=== PATIENT | female | born 1975 | race Caucasian/White ===

== ENCOUNTER 2019-06-16 14:03 | Emergency (ER) | payer OTHER ==
[2019-06-16 14:10] VITALS: BP 104/67; BMI 28.7
[2019-06-16] MEDS ORDERED: ACETAMINOPHEN 500 MG TABLET (FP) PO ONE (15:42)
[2019-06-16] MEDS ORDERED: KETOROLAC TROMETHAMINE 30 MG/1 ML VIAL IM ONE (15:42)
[2019-06-16] MEDS ORDERED: ACETAMINOPHEN 325 MG TABLET (FP) ONE (15:48)
[2019-06-16] MEDS ORDERED: KETOROLAC TROMETHAMINE 30 MG/1 ML VIAL ONE (15:49)
--- NOTE | 2019-06-16 17:32 | PDOC ---
History of Present Illness - General Chief Complaint: Cold Symptoms Stated Complaint: COLD SYMPTOMS Time Seen by Provider: 06/16/19 14:08 History Source: Patient Exam Limitations: No Limitations - History of Present Illness Initial Comments: 06/16/19 17:25 44-year-old female denies past medical history presents complaining of dry cough , frontal headache, sore throat, one episode of vomiting yesterday, subjective fever, chills, body aches for 24 hours. Patient is a schoolteacher. Denies recent travel, rash, abdominal pain, chest pain, shortness of breath, urinary symptoms or any other complaint. Patient received flu vaccine January 2019. ROS: GENERAL/CONSTITUTIONAL: Subjective fever, chills, body aches, no dizziness HEAD, EYES, EARS, NOSE AND THROAT: Sore throat, no changes in vision, No ear pain or discharge CARDIOVASCULAR: No chest pain RESPIRATORY: Dry cough GASTROINTESTINAL: nonbloody vomiting, no pain, nausea, diarrhea or constipation GENITOURINARY: No dysuria MUSCULOSKELETAL: No neck or back pain SKIN: No rash NEUROLOGIC: Frontal headache, vertigo, loss of consciousness, or loss of sensation PE: GENERAL: Appears uncomfortable, NAD HEAD: NCAT EYES: Pupils equal, round and reactive to light, sclera anicteric, conjunctiva clear ENT: Normal bilateral ear canal and TM 's, pharynx: no erythema, no exudate, uvula midline NECK: supple CHEST: nontender RESP: clear, no w/r/r CARDIO: rrr, no m/g/r ABD: +BS, soft, nontender, non distended BACK: no midline spinal ttp, no CVAT EXTREMITIES: Normal range of motion, no edema NEUROLOGICAL: Normal speech, normal gait SKIN: Warm, Dry Is this a multiple visit Asthma Patient?: No Past History - Past Medical History Allergies/Adverse Reactions: Allergies Allergy/AdvReac Type Severity Reaction Status Date / Time No Known Allergies Allergy Verified 06/16/19 14:11 Home Medications: Ambulatory Orders NK [No Known Home Medication] 06/16/19 COPD: No - Psycho Social/Smoking Cessation Hx Smoking History: Never smoked *Physical Exam - Vital Signs Last Vital Signs Temp Pulse Resp BP Pulse Ox 101.6 F H 115 H 18 104/67 100 06/16/19 14:07 06/16/19 14:07 06/16/19 14:07 06/16/19 14:07 06/16/19 14:07 ED Treatment Course - ADDITIONAL ORDERS Additional order review: Laboratory Results 06/16/19 16:00 Urine HCG, Qual Negative - Medications Given in the ED: ED Medications Discontinued Medications Generic Name Dose Route Start Last Admin Trade Name Sunday PRN Reason Stop Dose Admin Acetaminophen 650 mg 06/16/19 15:42 06/16/19 15:49 Tylenol - PO 06/16/19 15:43 650 mg ONCE ONE Administration Ketorolac Tromethamine 30 mg 06/16/19 15:42 06/16/19 15:49 Toradol Injection - IM 06/16/19 15:43 30 mg ONCE ONE Administration Medical Decision Making - Medical Decision Making 06/16/19 17:41 44-year-old female denies past medical history presents complaining of sore throat, subjective fever, chills, frontal headache and body aches for 24 hours. Flu swab negative Tolerated p.o. hydration IM Toradol 30 mg given Acetaminophen 650 mg given Vital signs improved Note for work Stable for discharge Discharge - Discharge Information Problems reviewed: Yes Clinical Impression/Diagnosis: Flu-like symptoms Condition: Stable Disposition: HOME - Admission No - Follow up/Referral - Patient Discharge Instructions Additional Instructions: Remain hydrated Alternate between acetaminophen 1000 mg every 6 hours and ibuprofen 600 mg every 6 hours as needed Rest Return to ED if chest pain, shortness of breath, pain or worsening symptoms Follow-up with your doctor within 1 week Note for work provided - Post Discharge Activity Work/Back to School Note: Back to Work
[2019-06-16 17:37] VITALS: PULSE 93; TEMP 99.9
== END 2019-06-16 17:56 | disposition home or self-care (01) ==
LOC: JERFT 14:03
PROC: 3E0233Z Introduction of Anti-inflammatory into Muscle, Percutaneous Approach (ICD-10-PCS; principal; 2019-06-16)
DX: J11.1 Influenza due to unidentified influenza virus with other respiratory manifestations (principal)
CPT/HCPCS: 84703; 87804; 99282-25